=== PATIENT | female | born 1980 | race Native Hawaiian/Other Pacific Islander ===

== ENCOUNTER 2017-03-01 06:46 | Day surgery (SDC) | payer OTHER ==
[2017-03-01 07:45] VITALS: O2SAT 100
[2017-03-01] MEDS ORDERED: cefOXitin IV 1 gm in Dextrose 1 GM/50 ML BAG IVPB ONE (09:03)
[2017-03-01] MEDS ORDERED: Lactated Ringer's 1,000 ML IV ONE ×2 (09:12→12:00)
[2017-03-01] MEDS ORDERED: Midazolam 2 MG/2 ML VIAL ONE (09:15)
[2017-03-01] MEDS ORDERED: Propofol 10 mg/ml Inj (20 ML) ONE (09:16)
[2017-03-01] MEDS: Bupivacaine HCl 0.25% PF (10 ml) Inj ONE ×2 (09:22→09:33)
[2017-03-01] MEDS ORDERED: Neostigmine Methylsulfate 3mg/3ml Syringe IV ONE (10:02)
--- NOTE | 2017-03-01 10:11 | PCM.SURG1 ---
Surgeon's Initial Post Op Note - Surgeon's Notes Surgeon: dr benedict [employer] Operator: dr parson Type of Anesthesia: General LMA Anesthesia Administered By: dr kevin Pre-Operative Diagnosis: 36 yr with multipaity and per,mament [id number] Operative Findings: see the op reort Post-Operative Diagnosis: with omental adhesion Operation Performed: laproscopic b/l tubal ligation/adhesion rem/iud removed Specimen/Specimens Removed: iud Estimated Blood Loss: EBL {In ML}: 20 Drains Used: No Drains Post-Op Condition: Good Date of Surgery/Procedure: 03/01/17 Time of Surgery/Procedure: 10:00
[2017-03-01] MEDS ORDERED: HYDROmorphone 0.5 mg/0.5 ml ISec IVP PRN (10:23)
[2017-03-01] MEDS ORDERED: Lactated Ringer's 1,000 ML IV SCH (10:30)
[2017-03-01 12:44] VITALS: BP 106/68; PULSE 79; RESP 18; TEMP 97.7
--- NOTE | 2017-03-02 01:47 | OP ---
PROCEDURE DATE: 03/01/2017 SURGEON: Thomas Weinstein MD PAPERBOARD MACHINE OPERATOR: Dr. Carvajal, who was present throughout the surgery for helping with the laparoscopy. ANESTHESIA: General anesthesia. ANESTHESIOLOGIST: Neal Chow MD COMPLICATIONS: None. PROCEDURE PERFORMED: Laparoscopic bilateral tubal ligation. PREOPERATIVE DIAGNOSIS: Multiparity, requested permanent sterilization. ESTIMATED BLOOD LOSS: 50 mL. DESCRIPTION OF PROCEDURE: After informed consent was obtained, the patient was brought to the operating room, placed on the table, general anesthesia given. Once the anesthesia was given, the patient was prepped and draped in the normal sterile fashion. On examination, the uterus was found to be 6-week size. No pelvic or adnexal masses. Anterior lip of the cervix was grasped with a tenaculum, and gentle dilatation of the cervix was done. After that, the HUMI catheter was then inserted. Riley catheter was then inserted under sterile condition. Then the attention was turned towards the patient's abdomen and 5 mL of Marcaine was given. The fascia was cut with the knife. It was lifted up with 2 Kochers. It was held up with 2-0 Vicryl. Then the peritoneum was incised, the Harish was placed inside, and intraabdominal placement was confirmed with gas. We went into the abdominal cavity. There was adhesion coming from the anterior wall of the abdomen, omentum, adhesion down towards the uterus. The decision was to take the omental adhesion. Then the 5-mm port was placed on the left side. After that, the omental adhesion was taken at the top. It was hemostatic. After that, the tubes on both the sides were visualized. It was normal. Then the bilateral tubal ligation was then using cautery. It was cut on 2 segments of the tube, on both the right and left side. After that, everything found hemostatic. No bleeding. The decision was to take all the instruments out. Gas was removed. The fascia at the site of the closure was closed with 2-0 Vicryl in interrupted fashion. Skin was closed using 4-0 Monocryl. HUMI catheter was removed. Riley catheter was introduced. The patient tolerated the procedure well. Lap, sponge, and instrument were correct x2. The patient was sent home on [facility]. Follow up with Dr. Weinstein in 10 days. Thomas Weinstein MD [facility] # [id number]
== END 2017-03-01 13:30 | disposition home or self-care (01) ==
LOC: C.SDS 06:46
PROVIDERS: ATTEND Obstetrics & Gynecology
DX: Z30.2 Encounter for sterilization (principal); Z30.432 Encounter for removal of intrauterine contraceptive device
CPT/HCPCS: 58301; 58670; 88300; J0694; J1170; J2250; J2704; J2710; J3010; J7120